=== PATIENT | male | born 1990 | race Caucasian/White ===

== ENCOUNTER 2017-01-18 14:11 | Emergency (ER) | payer SELFPAY ==
[~2017-01-18] VITALS: Ht 175.3 cm; Wt 128.3 kg
[2017-01-18 14:23] VITALS: TEMP 36.8; Ht 175.3 cm; Wt 128.3 kg
--- NOTE | 2017-01-18 14:27 | EMERGENCY ROOM VISIT NOTE ---
History Report prepared by Teo: Makenzie Mott Under the Supervision of: Jonathan DelvalleO. First contact with patient: 14:14 Chief Complaint: RIB PAIN Stated Complaint: L-SIDED RIB PAIN History of Present Illness The patient is a 26 year old male who presents to the Emergency Room with complaints of sudden left-sided rib pain beginning 2 hours prior to arrival. He states that he was having trouble breathing today and that he had a near- syncopal episode at work. He states that he intermittently gets this rib pain. Per EMS, the patient had bronchitis last week, but was not given antibiotics. He reports that he has been using his fiance's inhaler. The patient denies any recent falls, and he states that he believes his tetanus shot is up to date. The patient reports having a fever for 4 days last week and also has a cough. He states that inhaling exacerbated the pain initially but the pain is now resolved. He states that he has been around people who are sick. Pt denies headache, change in vision, nausea, vomiting, diarrhea, pain with urination, and melena. Pt states he has had similar episodes of left chest pain lasting only minutes for many years and it could never be diagnosed. No change with position/movement. Now feels back to normal. States pain nonradiating, sharp, all similar to prior episodes. Source of History: patient Onset: 2 hours prior to arrival Position: other (left-sided rib) Timing: other (sudden) Modifying Factors (Worsening): breathing (inhaling) Associated Symptoms: + fevers, + cough, No headache, No nausea, No vomiting , No diarrhea, No urinary symptoms Review of Systems See HPI for pertinent positives & negatives. A total of 10 systems reviewed and were otherwise negative. Past Medical & Surgical Medical Problems: (1) No significant past medical history Surgical Problems: (1) No history of previous surgery Family History FH: coronary artery disease FH: diabetes mellitus FH: hypertension Social History Smoking Status: Former Smoker Alcohol Use: none Marital Status: Housing Status: lives with family Occupation Status: employed Current/Historical Medications Scheduled Albuterol (Ventolin Hfa), 2 PUFFS INH QID Allergies Coded Allergies: Chocolate (Unverified Allergy, Mild, 08/20/16) No Known Allergies (Unverified , 03/02/14) Physical Exam Vital Signs Date Time Temp Pulse Resp B/P (MAP) Pulse Ox O2 Delivery O2 Flow Rate FiO2 01/18/17 16:20 87 20 132/81 95 Room Air 01/18/17 15:13 73 20 123/62 97 Room Air 01/18/17 14:23 36.8 96 20 136/88 96 Room Air 01/18/17 14:21 71 Physical Exam GENERAL: alert, well appearing, well nourished, no distress, non-toxic EYE EXAM: normal conjunctiva, PERRL and EOM's grossly intact OROPHARYNX: no exudate, no erythema, lips, buccal mucosa, and tongue normal and mucous membranes are moist NECK: supple, no nuchal rigidity, no adenopathy, non-tender LUNGS: Clear to auscultation. Normal chest wall mechanics, no w/r/r HEART: no murmurs, S1 normal and S2 normal , no reproducible chest wall tenderness ABDOMEN: abdomen soft, non-tender, normo-active bowel sounds, no masses, no rebound or guarding. BACK: Back is symmetrical on inspection and there is no deformity, no midline tenderness, no CVA tenderness. SKIN: no rashes and no bruising UPPER EXTREMITIES: upper extremities are grossly normal. Nml ROM. Nml pulses. LOWER EXTREMITIES: No pitting edema. Nml ROM. Nml pulses. NEURO EXAM: Normal sensorium, cranial nerves II-XII grossly intact, normal speech, no gross weakness of arms, no gross weakness of legs. No drift. Finger to nose intact. Gross sensation intact. Medical Decision & Procedures ER Provider Diagnostic Interpretation: Radiology results have been interpreted by the radiologist and reviewed by me. CHEST 2 VIEWS ROUTINE HISTORY: 26 years-old Male chest pain, cough acute atypical chest pain with cough COMPARISON: Chest radiographs 08/20/2016 TECHNIQUE: Frontal and lateral views of the chest FINDINGS: The cardiomediastinal and hilar silhouettes are within normal limits. There is no pneumothorax or pleural effusion. Normal subsegmental lingular atelectasis is noted without lobar airspace consolidation. The bones are grossly intact. IMPRESSION: Minimal subsegmental lingular atelectasis without acute cardiopulmonary process. The above report was generated using voice recognition software. It may contain grammatical, syntax or spelling errors. Electronically signed by: Bernabe Maria M.D. 01/18/2017 3:48 PM Dictated Date/Time: 01/18/2017 3:47 PM Laboratory Results 01/18/17 15:00 Red Blood Count 5.51, Mean Corpuscular Volume 83.7, Mean Corpuscular Hemoglobin 28.7, Mean Corpuscular Hemoglobin Concent 34.3, Mean Platelet Volume 9.7, Neutrophils (%) (Auto) 58.5, Lymphocytes (%) (Auto) 29.6, Monocytes (%) (Auto) 9.3, Eosinophils (%) (Auto) 1.6, Basophils (%) (Auto) 0.7, Neutrophils # (Auto) 4.26, Lymphocytes # (Auto) 2.16, Monocytes # (Auto) 0.68, Eosinophils # (Auto) 0.12, Basophils # (Auto) 0.05 01/18/17 15:00 Test 01/18/17 15:00 White Blood Count 7.29 K/uL (4.8-10.8) Red Blood Count 5.51 M/uL (4.7-6.1) Hemoglobin 15.8 g/dL (14.0-18.0) Hematocrit 46.1 % (42-52) Mean Corpuscular Volume 83.7 fL (80-100) Mean Corpuscular Hemoglobin 28.7 pg (25-34) Mean Corpuscular Hemoglobin Concent 34.3 g/dl (32-36) Platelet Count 257 K/uL (130-400) Mean Platelet Volume 9.7 fL (7.4-10.4) Neutrophils (%) (Auto) 58.5 % Lymphocytes (%) (Auto) 29.6 % Monocytes (%) (Auto) 9.3 % Eosinophils (%) (Auto) 1.6 % Basophils (%) (Auto) 0.7 % Neutrophils # (Auto) 4.26 K/uL (1.4-6.5) Lymphocytes # (Auto) 2.16 K/uL (1.2-3.4) Monocytes # (Auto) 0.68 K/uL (0.11-0.59) Eosinophils # (Auto) 0.12 K/uL (0-0.5) Basophils # (Auto) 0.05 K/uL (0-0.2) RDW Standard Deviation 40.0 fL (36.4-46.3) RDW Coefficient of Variation 13.2 % (11.5-14.5) Immature Granulocyte % (Auto) 0.3 % Immature Granulocyte # (Auto) 0.02 K/uL (0.00-0.02) Anion Gap 10.0 mmol/L (3-11) Est Creatinine Clear Calc Drug Dose 145.8 ml/min Estimated GFR () 118.2 Estimated GFR (Non- 102.0 BUN/Creatinine Ratio 13.0 (10-20) Calcium Level 9.5 mg/dl (8.5-10.1) Total Bilirubin 0.4 mg/dl (0.2-1) Aspartate Amino Transf (AST/SGOT) 28 U/L (15-37) Alanine Aminotransferase (ALT/SGPT) 81 U/L (12-78) Alkaline Phosphatase 108 U/L (45-117) Troponin I < 0.015 ng/ml (0-0.045) Total Protein 7.8 gm/dl (6.4-8.2) Albumin 4.0 gm/dl (3.4-5.0) Globulin 3.8 gm/dl (2.5-4.0) Albumin/Globulin Ratio 1.0 (0.9-2) Laboratory results per my review. ECG Indication: chest pain Rate (beats per minute): 65 Rhythm: sinus rhythm Findings: T-wave inversion (Lead III), no acute ischemic change, no ectopy, other (normal intervals, normal axis ) ED Course 1420: The patient was evaluated in room B3B. A complete history and physical exam was performed. 1600: I updated the patient on his results. He has had no recurrence of pain. 1605: Upon reevaluation, the patient is feeling better. I discussed the findings and the treatment plan with the patient. He verbalizes agreement and understanding. He was discharged home. Medical Decision Differential diagnosis: Etiologies such as vasovagal event, infection, hypoglycemia, electrolyte abnormalities, cardiac sources, intracerebral event, toxicologic, neurologic, as well as others were entertained. pt with recurrence of left chest wall pain he states he has been having intermittently for years, no trigger/pattern. States today felt slightly more severe and combined with recent URI sx likely contributed to near syncope. No neuro sx here, nonfocal neuro exam, doubt cva/dissection/cvs thrombus/sah. No dysrhythmia noted on tele. Labs and imaging reassuring here. Doubt acs, pe (r/ o with PERC and low Wells), tamponade, effusion, doubt bacteremia/sepsis, perf, pud, occult gi bleed, pneumothorax. Vs stable. Discussed with pt tobacco cessation and how that contributes to URI which is likely what he has. Did not feel pt warranted antibiotics. Discussed if sx persist, antibiotics may be warranted. Discussed sx to watch/return for, he verbalized understanding. pt well appearing and tolerating po at time of DC. No recurrent sx. HEART score 0 low risk from Roberts Dyllan syncope rules Medication Reconcilliation Current Medication List: was personally reviewed by me Blood Pressure Screening Patient's blood pressure: Normal blood pressure Impression Primary Impression: Left sided chest pain Additional Impression: Syncope, near Scribe Attestation The scribe's documentation has been prepared under my direction and personally reviewed by me in its entirety. I confirm that the note above accurately reflects all work, treatment, procedures, and medical decision making performed by me. Departure Information Dispostion Home / Self-Care Prescriptions Albuterol (Ventolin Hfa) 60 Puffs/5400 Mcg Aers 2 PUFFS INH QID for SOB/Wheezing, #1 INHALER Prov: Tamera Mann, DO 01/18/17 Referrals No Doctor, Assigned (PCP) Forms HOME CARE DOCUMENTATION FORM, IMPORTANT VISIT INFORMATION, WORK / SCHOOL INSTRUCTIONS Patient Instructions My [facility] Additional Instructions Please use the inhaler up to every 4 hours as needed for your coughing and chest tightness. Please make sure you're drinking plenty of water, and eating a regular intervals. If you have any recurrent episodes of chest pain, develop trouble breathing, dizziness, passing out, fevers, or have any other new concerns, please return the emergency room. Problem Qualifiers
[2017-01-18 15:13] LABS: BASO % 0.7 %; BASO ABS # 0.05 K/uL (0-0.2); COMPLETE YES; EOS % 1.6 %; HEMATOCRIT 46.1 % (42-52); IG% 0.3 %; LYMPH % 29.6 %; LYMPH ABS # 2.16 K/uL (1.2-3.4); MEAN CELL VOLUME 83.7 fL (80-100); MEAN CORPUSCULAR HEMOGLOBIN 28.7 pg (25-34); MEAN CORPUSCULAR HGB CONC 34.3 g/dl (32-36); MEAN PLATELET VOLUME 9.7 fL (7.4-10.4); MONO % 9.3 %; NEUT % 58.5 %; PLATELET COUNT 257 K/uL (130-400); RED BLOOD COUNT 5.51 M/uL (4.7-6.1); WHITE BLOOD COUNT 7.29 K/uL (4.8-10.8)
[2017-01-18 15:29] LABS: ALT/SGPT 81 U/L (12-78); BLOOD UREA NITROGEN 13 mg/dl (7-18); CALCIUM 9.5 mg/dl (8.5-10.1); CARBON DIOXIDE 24 mmol/L (21-32); CHLORIDE 107 mmol/L (98-107); GLUCOSE 97 mg/dl (70-99); POTASSIUM 4.1 mmol/L (3.5-5.1); SODIUM 141 mmol/L (136-145)
[2017-01-18 15:34] LABS: ALKALINE PHOSPHATASE 108 U/L (45-117); AST/SGOT 28 U/L (15-37)
--- NOTE | 2017-01-18 15:49 | DIAGNOSTIC IMAGING REPORT ---
CHEST 2 VIEWS ROUTINE HISTORY: 26 years-old Male chest pain, cough acute atypical chest pain with cough COMPARISON: Chest radiographs 08/20/2016 TECHNIQUE: Frontal and lateral views of the chest FINDINGS: The cardiomediastinal and hilar silhouettes are within normal limits. There is no pneumothorax or pleural effusion. Normal subsegmental lingular atelectasis is noted without lobar airspace consolidation. The bones are grossly intact. IMPRESSION: Minimal subsegmental lingular atelectasis without acute cardiopulmonary process. The above report was generated using voice recognition software. It may contain grammatical, syntax or spelling errors. Electronically signed by: Bernabe Maria M.D. 01/18/2017 3:48 PM Dictated Date/Time: 01/18/2017 3:47 PM
[2017-01-18 16:20] VITALS: BP 132/81; PULSE 87; O2SAT 95
[2017-01-18] MEDS ORDERED: PRVHFAIN INH (16:52)
== END 2017-01-18 16:50 | disposition home or self-care (01) ==
LOC: EDBD 14:11 → C.EDB 14:12
DX: R07.9 Chest pain, unspecified (principal); R55 Syncope and collapse; Z83.3 Family history of diabetes mellitus; Z82.49 Family history of ischemic heart disease and other diseases of the circulatory system; Z87.891 Personal history of nicotine dependence

== ENCOUNTER 2017-11-23 22:06 | Emergency (ER) | payer SELFPAY ==
[~2017-11-23] VITALS: Ht 175.3 cm; Wt 104.4 kg
[2017-11-23 22:08] VITALS: TEMP 37.1; Ht 175.3 cm; Wt 104.4 kg
[2017-11-23] MEDS ORDERED: LORAZEPAM 2 MG/ML 1 ML VIAL IV STA (22:24)
[2017-11-23] MEDS ORDERED: SODIUM CHLORIDE 0.9% 1000ML 1,000 ML IV ONE (22:30)
--- NOTE | 2017-11-23 22:38 | DIAGNOSTIC IMAGING REPORT ---
CHEST ONE VIEW PORTABLE CLINICAL HISTORY: 27 years-old Male presenting with Chest pain with inspiration. TECHNIQUE: Portable upright AP view of the chest was obtained. COMPARISON: 01/18/2017. FINDINGS: Cardiomediastinal silhouette normal. Mildly low lung volumes. Mild prominence of pulmonary vasculature. No focal opacity. No large effusion or pneumothorax. Osseous structures normal. Upper abdomen normal. IMPRESSION: 1. Mild prominence of pulmonary vasculature could suggest volume overload or be due to mildly low lung volumes. Otherwise no acute cardiopulmonary disease. Electronically signed by: Alfredo Mcdermott M.D. 11/23/2017 10:37 PM Dictated Date/Time: 11/23/2017 10:36 PM
[2017-11-23 23:01] VITALS: O2SAT 97
[2017-11-23 23:25] LABS: BASO % 0.3 %; BASO ABS # 0.03 K/uL (0-0.2); EOS % 1.1 %; HEMATOCRIT 44.9 % (42-52); HEMOGLOBIN 15.6 g/dL (14.0-18.0); IG# 0.02 K/uL (0.00-0.02); LYMPH % 25.7 %; LYMPH ABS # 2.28 K/uL (1.2-3.4); MEAN CELL VOLUME 83.9 fL (80-100); MEAN CORPUSCULAR HEMOGLOBIN 29.2 pg (25-34); MEAN CORPUSCULAR HGB CONC 34.7 g/dl (32-36); MEAN PLATELET VOLUME 9.8 fL (7.4-10.4); MONO % 9.9 %; MONO ABS # 0.88 K/uL (0.11-0.59); NEUT % 62.8 %; NEUT ABS # 5.56 K/uL (1.4-6.5); PLATELET COUNT 283 K/uL (130-400); RED CELL DISTRIBUTION WIDTH CV 13.6 % (11.5-14.5); RED CELL DISTRIBUTION WIDTH SD 40.9 fL (36.4-46.3); WHITE BLOOD COUNT 8.87 K/uL (4.8-10.8)
[2017-11-23 23:34] LABS: ALBUMIN 4.3 gm/dl (3.4-5.0); CALCIUM 9.4 mg/dl (8.5-10.1); CREATININE 1.04 mg/dl (0.60-1.40); TOTAL PROTEIN 8.2 gm/dl (6.4-8.2)
[2017-11-24 00:27] VITALS: BP 158/89; PULSE 74; O2SAT 99
--- NOTE | 2017-11-24 03:54 | EMERGENCY ROOM VISIT NOTE ---
History First contact with patient: 22:18 Chief Complaint: ANXIETY Stated Complaint: CHEST PAIN,ANXIETY History of Present Illness The patient is a 27 year old male who presents to the Emergency Room with complaints of near syncopal episode that occurred at work earlier tonight. The patient is employed in the kitchen of a local bar. The patient states that he was at work when he began feeling some lightheadedness. The patient then began complaining of chest pain symptoms. The patient states that he next remembers being seated on the ground talking to coworkers. The patient had a similar episode like this about a year ago, and he does report that he did follow with cardiology afterwards, and additional testing was negative. The patient has not been ill recently. He does not report headache, neck pain, shortness of breath, numbness, or paresthesias. He does have some anxiety symptoms in the past. He is under increased stress lately as his girlfriend recently broke up with him. The patient is not suicidal or homicidal. He does not do drugs or smoke tobacco/marijuana. He states that he does drink 2-3 energy drinks per day. He rates his current discomfort a 4/10. The patient was initially evaluated on site by EMS, but he elected to come to the ER by personal vehicle with a friend. Review of Systems More than 10 systems were reviewed and otherwise negative with the exception of history of present illness. Past Medical/Surgical History Medical Problems: (1) No significant past medical history Surgical Problems: (1) No history of previous surgery Family History FH: coronary artery disease FH: diabetes mellitus FH: hypertension Social History Smoking Status: Never Smoker Alcohol Use: none Marital Status: Housing Status: lives with family Occupation Status: employed Current/Historical Medications No Active Prescriptions or Reported Meds Physical Exam Vital Signs Date Time Temp Pulse Resp B/P (MAP) Pulse Ox O2 Delivery O2 Flow Rate FiO2 11/24/17 00:27 74 18 158/89 99 Room Air 11/23/17 23:01 97 Room Air 11/23/17 23:01 76 18 130/88 97 Room Air 11/23/17 22:56 81 11/23/17 22:08 37.1 70 18 138/93 97 Room Air Physical Exam VITALS: Vitals are noted on the nurse's note and reviewed by myself. Vital signs stable. GENERAL: Well-developed, well-nourished, white male, who is in no acute distress and resting comfortably. Patient is cooperative with the examination. HEAD: Normocephalic atraumatic. EARS: External ear normal. External auditory canals clear, tympanic membranes pearly ronqu[place] without erythema or effusion bilaterally. EYES: Pupils equal round and reactive to light and accommodation. Conjunctivae without injection, sclerae without icterus. Extraocular movements intact. NOSE: Patent, turbinates without inflammation or discharge. MOUTH: Mucous membranes moist. Tonsils are not enlarged. Pharynx without erythema, blood, or exudate. Uvula midline. Airway patent. NECK: Supple without nuchal rigidity. No lymphadenopathy. No thyromegaly. Cervical spine is nontender. HEART: Regular rate and rhythm without murmurs gallops or rubs. LUNGS: Clear to auscultation bilaterally without wheezes, rales or rhonchi. No retractions or accessory muscle use. ABDOMEN: Positive normal bowel sounds x 4. Soft, nontender, without masses or organomegaly. No guarding or rebound tenderness. MUSCULOSKELETAL: No muscle atrophy, erythema, or edema noted. Full range of motion in all extremities. No tenderness to palpation. Normal gait. Strength 5/5 throughout. NEURO: Patient was alert and oriented to person place and time. CN II through XII grossly intact. No focal neurological deficits. Deep tendon reflexes 2+ throughout. SKIN: The skin was without rashes, erythema, edema, or bruising. Capillary refill less than 2 seconds. Medical Decision & Procedures ER Provider Diagnostic Interpretation: CHEST ONE VIEW PORTABLE CLINICAL HISTORY: 27 years-old Male presenting with Chest pain with inspiration. TECHNIQUE: Portable upright AP view of the chest was obtained. COMPARISON: 01/18/2017. FINDINGS: Cardiomediastinal silhouette normal. Mildly low lung volumes. Mild prominence of pulmonary vasculature. No focal opacity. No large effusion or pneumothorax. Osseous structures normal. Upper abdomen normal. IMPRESSION: 1. Mild prominence of pulmonary vasculature could suggest volume overload or be due to mildly low lung volumes. Otherwise no acute cardiopulmonary disease. Laboratory Results 11/23/17 22:45 Red Blood Count 5.35, Mean Corpuscular Volume 83.9, Mean Corpuscular Hemoglobin 29.2, Mean Corpuscular Hemoglobin Concent 34.7, Mean Platelet Volume 9.8, Neutrophils (%) (Auto) 62.8, Lymphocytes (%) (Auto) 25.7, Monocytes (%) (Auto) 9.9, Eosinophils (%) (Auto) 1.1, Basophils (%) (Auto) 0.3, Neutrophils # (Auto) 5.56, Lymphocytes # (Auto) 2.28, Monocytes # (Auto) 0.88, Eosinophils # (Auto) 0.10, Basophils # (Auto) 0.03 11/23/17 22:45 Test 11/23/17 22:45 11/23/17 22:57 11/23/17 23:40 White Blood Count 8.87 K/uL (4.8-10.8) Red Blood Count 5.35 M/uL (4.7-6.1) Hemoglobin 15.6 g/dL (14.0-18.0) Hematocrit 44.9 % (42-52) Mean Corpuscular Volume 83.9 fL (80-100) Mean Corpuscular Hemoglobin 29.2 pg (25-34) Mean Corpuscular Hemoglobin Concent 34.7 g/dl (32-36) Platelet Count 283 K/uL (130-400) Mean Platelet Volume 9.8 fL (7.4-10.4) Neutrophils (%) (Auto) 62.8 % Lymphocytes (%) (Auto) 25.7 % Monocytes (%) (Auto) 9.9 % Eosinophils (%) (Auto) 1.1 % Basophils (%) (Auto) 0.3 % Neutrophils # (Auto) 5.56 K/uL (1.4-6.5) Lymphocytes # (Auto) 2.28 K/uL (1.2-3.4) Monocytes # (Auto) 0.88 K/uL (0.11-0.59) Eosinophils # (Auto) 0.10 K/uL (0-0.5) Basophils # (Auto) 0.03 K/uL (0-0.2) RDW Standard Deviation 40.9 fL (36.4-46.3) RDW Coefficient of Variation 13.6 % (11.5-14.5) Immature Granulocyte % (Auto) 0.2 % Immature Granulocyte # (Auto) 0.02 K/uL (0.00-0.02) Anion Gap 7.0 mmol/L (3-11) Est Creatinine Clear Calc Drug Dose 124.8 ml/min Estimated GFR () 111.9 Estimated GFR (Non- 96.6 BUN/Creatinine Ratio 15.1 (10-20) Calcium Level 9.4 mg/dl (8.5-10.1) Total Bilirubin 0.7 mg/dl (0.2-1) Aspartate Amino Transf (AST/SGOT) 22 U/L (15-37) Alanine Aminotransferase (ALT/SGPT) 58 U/L (12-78) Alkaline Phosphatase 91 U/L (45-117) Total Protein 8.2 gm/dl (6.4-8.2) Albumin 4.3 gm/dl (3.4-5.0) Globulin 3.9 gm/dl (2.5-4.0) Albumin/Globulin Ratio 1.1 (0.9-2) Lipase 100 U/L (73-393) Thyroid Stimulating Hormone (TSH) 1.020 uIu/ml (0.300-4.500) Bedside D-Dimer 229 ng/mlFEU (0-450) Bedside Troponin I < 0.030 ng/ml (0-0.045) Urine Color DK YELLOW Urine Appearance CLEAR (CLEAR) Urine pH 5.5 (4.5-7.5) Urine Specific [place] 1.027 (1.000-1.030) Urine Protein NEG (NEG) Urine Glucose (UA) NEG (NEG) Urine Ketones TRACE (NEG) Urine Occult Blood NEG (NEG) Urine Nitrite NEG (NEG) Urine Bilirubin NEG (NEG) Urine Urobilinogen NEG (NEG) Urine Leukocyte Esterase NEG (NEG) Medications Administered Medications (Trade) Dose Ordered Sig/Shivam Route Start Time Stop Time Status Last Admin Dose Admin Lorazepam (Ativan Inj) 1 mg NOW STAT IV 11/23/17 22:24 11/23/17 22:26 DC 11/23/17 22:54 1 MG Sodium Chloride 1,000 ml @ 999 mls/hr Q1H1M ONCE IV 11/23/17 22:30 11/23/17 23:30 DC 11/23/17 22:54 999 MLS/HR ED Course Physical exam and history were performed. Nursing notes, EMR, and Medication List were personally reviewed. Patient appears to have had a syncopal/near syncopal episode that occurred at work today. The patient did have some mild chest discomfort right before the episode occurred. He does not appear toxic on examination, but may be mildly anxious. IV access was established and labs were obtained. EKG was performed was normal sinus rhythm without acute ST elevation or ectopy. He was placed on a display associate. He was hydrated and medicated as above. Chest x-ray was performed and reviewed by myself and radiology as showing no significant acute process. The patient's blood work is as above and was reviewed. He does not have a significantly elevated white blood cell count, anemia, or electrolyte imbalance. Lipase and transaminases are not diagnostic. Troponin and d-dimer 1 are both negative. He remained in normal sinus rhythm on the display associate. I had a lengthy discussion with patient regarding his findings. He felt markedly better after the Ativan and some fluids. He states that he has had these episodes in the past, and admittedly believes that many of them are stress /anxiety and he has had some increased stressors in his life, and he is not surprised this occurred. Overall he does not appear to have an acute process to keep him here in the hospital. He has followed with cardiology in the past and I recommended that he follow-up with them again. The patient was otherwise invited back to the ER with any new, worsening, or concerning symptoms. The patient was discharged home under the care of a male concrete mixing plant superintendent. The chart was completed utilizing [employer] Speech Voice Recognition Software. Grammatical errors, random word insertions, pronoun errors, and incomplete sentences are an occasional consequence of this system due to software limitations, ambient noise, and hardware issues. Any formal questions or concerns about the content, text, or information contained within the body of this dictation should be directly addressed to the provider for clarification. . Medical Decision Differential diagnosis: Etiologies such as vasovagal event, infection, hypoglycemia, electrolyte abnormalities, cardiac sources, intracerebral event, toxicologic, neurologic, as well as others were entertained. Impression Primary Impression: Fainting spell Departure Information Dispostion Home / Self-Care Condition GOOD Prescriptions No Active Prescriptions or Reported Meds Forms HOME CARE DOCUMENTATION FORM, Work Instructions, Additional Instructions: Patient was seen and evaluated here in the emergency department for medica care. May return to work without restriction. IMPORTANT VISIT INFORMATION Patient Instructions My [facility] Additional Instructions You were seen and evaluated today on an emergency basis only. This is not a substitute for, or an effort to provide, complete comprehensive medical care. It is not possible to recognize and treat all injuries or illnesses in a single emergency department visit. For this reason it is recommended that you followup with your primary care physician for ongoing care and evaluation. You ultimately need evaluation by cardiology. You are welcome to return to the emergency department anytime with new, worsening, or concerning symptoms. Work Instructions Additional Work Instructions: Patient was seen and evaluated here in the emergency department for medical care. May return to work without restriction.
== END 2017-11-24 00:24 | disposition home or self-care (01) ==
LOC: C.EDB 22:07 → C.EDA 11-24 00:24
DX: R55 Syncope and collapse (principal); Z82.49 Family history of ischemic heart disease and other diseases of the circulatory system